=== PATIENT | female | born 2000 | race Caucasian/White ===

== ENCOUNTER 2020-12-27 16:36 | Emergency (ER) | payer OTHER, SELFPAY ==
--- NOTE | ~2020-12-27 | XR_ITS ---
EXAMINATION: XR ankle RT min 3V DATE: 12/27/2020 17:04 INDICATION: Right ankle injury and pain. TECHNIQUE: 4 views of right ankle were obtained. COMPARISON: None. FINDINGS: Bone alignment is normal. No fracture. There is mild osteoarthritis of talonavicular joint. IMPRESSION: 1. No fracture. Reviewed, dictated and finalized at location A. IMPRESSION: 1. No fracture.
--- NOTE | 2020-12-27 16:47 | ED.GENADULT ---
HPI - General Adult General Chief complaint: Extremity Injury, Lower Stated complaint: rt ankle inj Time Seen by Provider: 12/27/20 16:47 Source: patient Mode of arrival: ambulatory Limitations: no limitations History of Present Illness HPI narrative: 20-year-old female patient presents to the [facility] with complaints of right heel pain. Patient states that she was pulling a cart behind her today at work and states that she hit her heel onto the crate. Patient states that she did ice it and took some ibuprofen prior to arrival today. Related Data Home Medications Medication Instructions Recorded Confirmed sertraline [Zoloft] 100 mg PO DAILY 12/27/20 12/27/20 Allergies Allergy/AdvReac Type Severity Reaction Status Date / Time No Known Allergies Allergy Verified 12/27/20 17:14 Review of Systems Review of Systems: Narrative: CONSTITUTIONAL: Denies fever, chills, or sweats. EYES: Denies visual changes, redness, or discharge. ENT: Denies rhinorrhea, congestion, sore throat, or otalgia. CARDIOVASCULAR: Denies chest pain, palpitations, or edema. RESPIRATORY: Denies cough or dyspnea. GASTROINTESTINAL: Denies abdominal pain, nausea, vomiting, or diarrhea. GENITOURINARY: Denies dysuria or hematuria. SKIN: Denies rash or itching. MUSCULOSKELETAL: Denies back pain, joint pain, or myalgia. Positive right heel pain NEUROLOGIC: Denies headache, numbness, or weakness. PSYCHIATRIC: Denies anxiety or depression. [facility] Past Medical History Medical History Nexplanon in place Surgical History Surgical History (Updated 12/27/20 @ 17:24 by VIKY Zee) History of orthopedic surgery Hardware left elbow Social History Social History Smoking status: Never smoker Comments At the time of my signature I agree with nursing past medical history, surgical, social, and family history. There is no relevant family history pertinent to the presenting complaint. Exam Narrative: Exam Narrative: GENERAL: Well-appearing, well-nourished, and in no acute distress. HEAD: Normocephalic, atraumatic. EYES: PERRLA and EOMI. ENT: Nares clear, no rhinorrhea or epistaxis. Mucous membranes moist. NECK: Supple. No lymphadenopathy CHEST: Clear to auscultation. No respiratory distress. HEART: Regular rate and rhythm. No murmur heard. Normal peripheral pulses. ABDOMEN: Soft, nontender, nondistended, normal active bowel sounds. EXTREMITIES: Patient able to bear weight and ambulate without pain. No surface trauma, ecchymosis, erythema, lesions, ulcers or break in skin integrity. The L foot is without obvious asymmetry or deformity when compared to the L foot. No bony step-off, nontender to palpation over the toes, midfoot or tenderness over the hindfoot and calcaneus on palpation. Normal plantar/dorsiflexion, inversion/eversion. Distal motor and neurovascular status are intact SKIN: Warm, dry, no rash. NEURO: No focal deficits. Alert and oriented x3. Course Vital Signs Vital signs: Vital Signs Temperature 37.2 C 12/27/20 16:54 Pulse Rate 77 12/27/20 16:54 Respiratory Rate 16 12/27/20 16:54 Blood Pressure 103/58 L 12/27/20 16:54 Pulse Oximetry 100 12/27/20 16:54 Temperature 37.2 C 12/27/20 16:54 Pulse Rate 77 12/27/20 16:54 Respiratory Rate 16 12/27/20 16:54 Blood Pressure 103/58 L 12/27/20 16:54 Pulse Oximetry 100 12/27/20 16:54 Vital signs reviewed Medical Decision Making Differential Diagnosis Differential Diagnosis: Differential diagnosis: Foot fracture, crush injury, compartment syndrome, contusion, sprain, tendinitis,lisfranc sprain or fracture, avulsion fracture, grown toenail, diabetic ulcer. Cussed with patient that her x-ray is negative for any acute fractures. Discussed with her this is most likely a contusion to the right heel. Discussed with patient she can continue taking Tylenol and ibuprofen as needed for pain and would encour
[2020-12-27 16:54] VITALS: BP 103/58; PULSE 77; RESP 16; TEMP 37.2; O2SAT 100
== END 2020-12-27 17:24 | disposition home or self-care (01) ==
PROVIDERS: Emergency Provider Nurse Practitioner Family; PCP Physician Assistant
DX: S90.31XA Contusion of right foot, initial encounter (principal); W22.8XXA Striking against or struck by other objects, initial encounter; Y99.0 Civilian activity done for income or pay; F41.9 Anxiety disorder, unspecified; F32.9 Major depressive disorder, single episode, unspecified
CPT/HCPCS: 73610; 99213; G0463